=== PATIENT | male | born 1970 | race African-American/Black ===

== ENCOUNTER 2024-04-05 11:50 | Emergency (ER) | payer MEDICARE ==
[~2024-04-05] VITALS: Ht 177.8 cm; Wt 100.0 kg
[2024-04-05 12:02] VITALS: O2SAT 99
[2024-04-05] MEDS ORDERED: CYCL5TAB3 MT (15:12)
[2024-04-05] MEDS ORDERED: IBUP-2028 MT (15:43)
[2024-04-05] MEDS ORDERED: LIDO700A15 TP (15:44)
[2024-04-05 18:55] VITALS: BP 151/82; PULSE 80; RESP 18; TEMP 36.89184; O2SAT 99
== END 2024-04-05 19:00 | disposition home or self-care (01) ==
LOC: ER 11:50
DX: M79.641 Pain in right hand (principal); M79.642 Pain in left hand; F10.90 Alcohol use, unspecified, uncomplicated; F12.90 Cannabis use, unspecified, uncomplicated; V49.40XA Driver injured in collision with unspecified motor vehicles in traffic accident, initial encounter; Y93.89 Activity, other specified; Y92.89 Other specified places as the place of occurrence of the external cause; Y99.8 Other external cause status; Z98.890 Other specified postprocedural states; Y90.9 Presence of alcohol in blood, level not specified
CPT/HCPCS: 73110; 73120; 99284